=== PATIENT | female | born 1980 | race African-American/Black ===

== ENCOUNTER → 2023-04-30 12:31 | Outpatient (CLI) | payer BC, OTHER, SELFPAY ==
[2023-04-30 12:45] LABS: Basophils # 0.1 K/mm3 (0-0.2); Basophils % 0.5 % (0.1-2.0); Eosinophils # 0.3 K/mm3 (0.0-0.4); Eosinophils % 1.9 % (0.1-12.0); Hematocrit 39.7 % (37.0-47.0); Hemoglobin 13.3 g/dL (12.2-16.2); Lymphocytes # 2.8 K/mm3 (0.7-4.5); Lymphocytes % 20.3 % (10-50); Mean Corpuscular HGB Conc 33.4 g/dL (31.8-35.4); Mean Corpuscular Hemoglobin 31.9 pg (27.0-31.2); Mean Corpuscular Volume 95.5 fl (81-99); Mean Platelet Volume 7.3 fl (7.4-10.4); Monocytes # 0.8 K/mm3 (0.1-1.0); Neutrophils # 9.8 K/mm3 (1.8-7.8); Neutrophils % 71.3 % (37.0-80.0); Platelet Count 437 K/mm3 (142-424); Red Blood Count 4.16 M/mm3 (4.20-5.40); Red Cell Distribution Width 13.6 % (11.5-17.5); White Blood Count 13.8 K/mm3 (4.8-10.8)
== END ==
PROVIDERS: PCP Nurse Practitioner Family; Visit Provider Internal Medicine Medical Oncology
DX: D72.829 Elevated white blood cell count, unspecified (principal)
CPT/HCPCS: 36415; 85025

== ENCOUNTER → 2023-05-02 13:05 | Outpatient (CLI) | payer BC, OTHER, SELFPAY ==
[2023-05-13 18:56] LABS: Interpretation: Negative (.)
== END ==
PROVIDERS: PCP Nurse Practitioner Family; Visit Provider Internal Medicine Medical Oncology
DX: D72.829 Elevated white blood cell count, unspecified (principal)
CPT/HCPCS: 36415; 81206

== ENCOUNTER 2023-08-13 13:48 | Outpatient (CLI) | payer OTHER, SELFPAY ==
[2023-08-13 14:24] LABS: Basophils # 0.1 K/mm3 (0-0.2); Basophils % 0.6 % (0.1-2.0); Eosinophils # 0.4 K/mm3 (0.0-0.4); Eosinophils % 3.3 % (0.1-12.0); Hematocrit 38.6 % (37.0-47.0); Hemoglobin 14.6 g/dL (12.2-16.2); Lymphocytes # 3.6 K/mm3 (0.7-4.5); Lymphocytes % 33.2 % (10-50); Mean Corpuscular HGB Conc 37.8 g/dL (31.8-35.4); Mean Corpuscular Hemoglobin 38.1 pg (27.0-31.2); Mean Corpuscular Volume 100.8 fl (81-99); Mean Platelet Volume 7.4 fl (7.4-10.4); Monocytes # 0.8 K/mm3 (0.1-1.0); Neutrophils # 6.1 K/mm3 (1.8-7.8); Neutrophils % 55.9 % (37.0-80.0); Platelet Count 314 K/mm3 (142-424); Red Blood Count 3.83 M/mm3 (4.20-5.40); Red Cell Distribution Width 13.6 % (11.5-17.5); White Blood Count 10.9 K/mm3 (4.8-10.8)
== END 2023-08-13 23:59 ==
LOC: LAB 13:49
PROVIDERS: PCP Nurse Practitioner Family; Visit Provider Internal Medicine Medical Oncology
DX: D72.829 Elevated white blood cell count, unspecified (principal); Z79.899 Other long term (current) drug therapy
CPT/HCPCS: 36415; 85025

== ENCOUNTER 2024-02-04 09:13 | Outpatient (CLI) | payer BC, SELFPAY ==
[2024-02-04 09:31] LABS: Basophils # 0.1 K/mm3 (0-0.2); Basophils % 0.7 % (0.1-2.0); Eosinophils # 0.4 K/mm3 (0.0-0.4); Eosinophils % 3.2 % (0.1-12.0); Hematocrit 47.2 % (37.0-47.0); Hemoglobin 14.4 g/dL (12.2-16.2); Lymphocytes # 2.7 K/mm3 (0.7-4.5); Lymphocytes % 22.5 % (10-50); Mean Corpuscular HGB Conc 30.4 g/dL (31.8-35.4); Mean Corpuscular Hemoglobin 30.3 pg (27.0-31.2); Mean Corpuscular Volume 99.7 fl (81-99); Mean Platelet Volume 7.8 fl (7.4-10.4); Monocytes # 0.8 K/mm3 (0.1-1.0); Monocytes % 6.2 % (1.7-9.3); Neutrophils # 8.2 K/mm3 (1.8-7.8); Neutrophils % 67.5 % (37.0-80.0); Platelet Count 411 K/mm3 (142-424); Red Blood Count 4.74 M/mm3 (4.20-5.40); Red Cell Distribution Width 13.5 % (11.5-17.5); White Blood Count 12.1 K/mm3 (4.8-10.8)
[2024-02-04 10:00] LABS: Alanine Aminotransferase 15 U/L (12-78); Albumin Level 3.8 g/dl (3.5-5.0); Albumin/Globulin Ratio 1.3 (1.1-1.8); Alkaline Phosphatase 87 U/L (38-126); Anion Gap 8.4 mEq/L (5-15); Aspartate Amino Transferase 16 U/L (14-36); Bilirubin,Total 0.2 mg/dl (0.2-1.3); Blood Urea Nitrogen 12 mg/dl (7-17); Calcium 9.1 mg/dl (8.4-10.2); Carbon Dioxide 32 mmol/L (22.0-30.0); Chloride 105 mmol/L (98-107); Chol/HDL Ratio 3.9 (1-3.5); Cholesterol 131 mg/dl (140-200); Estimated Glomerular Filt Rate 78 ml/min (>60); GFR (African American) 95 ML/MIN (>60); Globulin 2.9 g/dL (1.3-3.2); Glucose 69 mg/dl (74-100); HDL Cholesterol 34 mg/dl (40-60); Potassium 3.4 mmoL/L (3.5-5.1); Sodium 142 mmol/L (136-145); Total Protein,Serum 6.7 g/dl (6.3-8.2); Triglycerides 121 mg/dl (30-150); VLDL Cholesterol 24 mg/dL (0-40)
[2024-02-04 10:11] LABS: Direct LDL Cholesterol 69.73 mg/dL (100-129)
[2024-02-04 10:17] LABS: 25-OH Vitamin D, Total 32.9 ng/mL (30-100)
== END 2024-02-04 23:59 | disposition home or self-care (01) ==
LOC: LAB 09:14
PROVIDERS: PCP Nurse Practitioner Family; Visit Provider Nurse Practitioner Family
DX: I10 Essential (primary) hypertension (principal); D75.839 Thrombocytosis, unspecified; E55.9 Vitamin D deficiency, unspecified
CPT/HCPCS: 36415; 80053; 80061; 82306; 85025

== ENCOUNTER 2024-03-13 20:36 | Emergency (ER) | payer BC, SELFPAY ==
[2024-03-13 20:57] VITALS: BP 136/79; PULSE 85; RESP 16; TEMP 36.7; O2SAT 99; BMI 30.7
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
[2024-03-13 21:25] LABS: Basophils # 0.1 K/mm3 (0-0.2); Basophils % 0.8 % (0.1-2.0); Eosinophils # 0.2 K/mm3 (0.0-0.4); Eosinophils % 1.8 % (0.1-12.0); Hematocrit 51.1 % (37.0-47.0); Hemoglobin 15.9 g/dL (12.2-16.2); Lymphocytes # 3.8 K/mm3 (0.7-4.5); Lymphocytes % 35.3 % (10-50); Mean Corpuscular HGB Conc 31.1 g/dL (31.8-35.4); Mean Corpuscular Hemoglobin 29.9 pg (27.0-31.2); Mean Corpuscular Volume 96.3 fl (81-99); Mean Platelet Volume 7.5 fl (7.4-10.4); Monocytes # 0.7 K/mm3 (0.1-1.0); Neutrophils # 6.1 K/mm3 (1.8-7.8); Neutrophils % 56.1 % (37.0-80.0); Platelet Count 371 K/mm3 (142-424); Red Cell Distribution Width 12.9 % (11.5-17.5); White Blood Count 10.8 K/mm3 (4.8-10.8)
[2024-03-13 21:28] LABS: Albumin Level 4.1 g/dl (3.5-5.0); Chloride 103 mmol/L (98-107)
[2024-03-13 21:29] LABS: Sodium 141 mmol/L (136-145)
[2024-03-13 21:31] LABS: Blood Urea Nitrogen 8 mg/dl (7-17); Creatinine Clearance Estimated 123 mL/min (50-200); Estimated Glomerular Filt Rate 78 ml/min (>60); GFR (African American) 95 ML/MIN (>60)
[2024-03-13 21:32] LABS: Alanine Aminotransferase 26 U/L (12-78); Albumin/Globulin Ratio 1.3 (1.1-1.8); Alkaline Phosphatase 74 U/L (38-126); Anion Gap 4.7 mEq/L (5-15); Aspartate Amino Transferase 24 U/L (14-36); Bilirubin,Total 0.4 mg/dl (0.2-1.3); Calcium 9.8 mg/dl (8.4-10.2); Carbon Dioxide 36 mmol/L (22.0-30.0); Globulin 3.2 g/dL (1.3-3.2); Glucose 92 mg/dl (74-100); Total Protein,Serum 7.3 g/dl (6.3-8.2)
[2024-03-13 21:35] LABS: Activated Partial Thrombo Time 30.8 seconds (22.8-30.6); INR 0.94 (0.9-1.1); Prothrombin Time 10.6 seconds (10.1-12.5)
[2024-03-13 21:41] LABS: Potassium 2.7 mmoL/L (3.5-5.1)
--- NOTE | 2024-03-13 21:53 | ECG_ITS ---
APPROVED REPORT Exam: Resting ECG HR:59 bpm ECG Measurements Heart Rate 59 AXES UT 193 P 158 QRSd 90 QRS 77 QT 426 T 57 QTc 424 Conclusion SINUS BRADYCARDIA BORDERLINE ECG Electronically signed by : PURNIMA SHANKAR, 03/13/2024 23:56:41
[2024-03-13] MEDS: SODIUM CHLORIDE 0.9% 10ML SYR (RAD ONLY) 10 ML IV (22:27)
[2024-03-13] MEDS: 0.9 % SODIUM CHLORIDE 50 ML VIAL 100 ML IV (22:27)
[2024-03-13] MEDS: IOPAMIDOL-370 (76%);100ML BOTTLE 150 ML IV (22:27)
[2024-03-13] MEDS: LIDOCAINE 5% TRANSDERMAL PATCH 1 EACH TP (22:29)
[2024-03-13] MEDS: ACETAMINOPHEN 500MG TAB 1000 MG PO (22:29)
[2024-03-13] MEDS: KCl 10mEq/100ml 100 ML 100 MEQ IV (22:29)
[2024-03-13] MEDS: METHOCARBAMOL 500MG TABLET 500 MG PO (22:29)
[2024-03-13] MEDS: POTASSIUM CHLORIDE 20MEQ TAB 40 MEQ PO (22:29)
[2024-03-13] MEDS: LACTATED RINGERS 1000ML 1,000 ML 999 ML IV (22:30)
--- NOTE | 2024-03-13 23:00 | PC.NURSE ---
called radiology in request to [facility] to [facility]
--- NOTE | 2024-03-13 23:07 | PC.NURSE ---
Contacted in regards to transfer for this patient, all images power-shared and provider on the phone at this time.
--- NOTE | 2024-03-13 23:24 | PC.NURSE ---
called report to LYSSA garcia
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
[2024-03-13 23:37] VITALS: BP 142/75; PULSE 78; RESP 19; TEMP 36.7; O2SAT 98
== END 2024-03-13 23:44 | disposition left against medical advice (07) ==
PROVIDERS: Emergency Provider Emergency Medicine; PCP Nurse Practitioner Family
DX: S06.9X0A Unspecified intracranial injury without loss of consciousness, initial encounter (principal); S02.832A Fracture of medial orbital wall, left side, initial encounter for closed fracture; S02.40DA Maxillary fracture, left side, initial encounter for closed fracture; S02.40CA Maxillary fracture, right side, initial encounter for closed fracture; R51.9 Headache, unspecified; R11.0 Nausea; M25.512 Pain in left shoulder; R07.81 Pleurodynia; H53.2 Diplopia; Z79.82 Long term (current) use of aspirin; Y04.8XXA Assault by other bodily force, initial encounter; Y07.010 Husband, current, perpetrator of maltreatment and neglect; F17.200 Nicotine dependence, unspecified, uncomplicated; R00.1 Bradycardia, unspecified; E87.6 Hypokalemia
CPT/HCPCS: 70450; 70486; 70496; 70498; 71275; 72125; 72128; 73030; 73060; 73080; 74174; 80053; 85025; 85610; 85730; 93005; 96360; 96361; 99291; J3480; J7120; Q9967

== ENCOUNTER 2024-05-16 20:09 | Emergency (ER) | payer BC, SELFPAY ==
[2024-05-16 20:10] VITALS: BP 167/91; PULSE 76; RESP 18; TEMP 36.4; O2SAT 100; BMI 30.4
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
[2024-05-16 21:10] VITALS: BP 132/97; PULSE 79; RESP 16; TEMP 36.9; O2SAT 100
[2024-05-16 21:20] VITALS: BP 132/97; PULSE 79; RESP 16; TEMP 36.9; O2SAT 100
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
== END 2024-05-16 21:26 ==
PROVIDERS: Emergency Provider Emergency Medicine; PCP Nurse Practitioner Family
DX: Z00.8 Encounter for other general examination (principal); R07.89 Other chest pain; R03.0 Elevated blood-pressure reading, without diagnosis of hypertension; R10.2 Pelvic and perineal pain
CPT/HCPCS: 71046; 72170; 99283

== ENCOUNTER 2025-01-13 10:33 | Outpatient (CLI) | payer OTHER, SELFPAY ==
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
--- OUTSIDE RECORDS SUMMARY | 2025-01-13 10:41 | XMS_ITS | Clinical Summary ---
Author Organization [facility] Address [address] [place] [address] Care Team Providers Care Clinic Supervisor Name Role Phone Unavailable Primary Care Provider Unavailabl e Social History Tobacco Use Types Packs/Day Years Used Date Smoking Tobacco: Never Assessed Comments Unknown Sex and Gender Information Value Date Recorded Sex Assigned at Not on file Legal Sex Female 8:39 PM EDT Gender Identity Not on file Sexual Orientation Not on file Plan of Treatment Not on file
--- OUTSIDE RECORDS SUMMARY | 2025-01-13 10:42 | XMS_ITS | Encounter Summary ---
Author Organization [facility] Address [address] 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 Name Role Phone Unavailable Primary Care Provider Unavailabl e Encounter Details Date Type Department Care Team (Late st Contact Info) Description 07/19/2024 Lab Requisition [facility] [address] [place] [address] Maximiliano Sullivan MD [address] [place] [address] Routine general medical examination at a health care facility Social History Tobacco Use Types Packs/Day Years Used Date Smoking Tobacco: Never Assessed Comments Unknown Sex and Gender Information Value Date Recorded Sex Assigned at Not on file Legal Sex Female 8:39 PM EDT Gender Identity Not on file Sexual Orientation Not on file documented as of this encounter Plan of Treatment Not on file documented as of this encounter Procedures Procedure Name Priority Date/Time Associated Diagnosis Comments SERUM DRUG SCREEN Routine 07/19/2024 7:2 9 AM EST Routine general medical examination at a health care facility CBC WITH AUTO DIFFERENTIAL Routine 07/19/2024 7:29 AM EST Routine general medical examination at a health care facility TSH Routine 07/19/2024 7:29 AM EST Routine general medical examination at a health care facility FREE T4, PLASMA Routine 07/19/2024 7:29 AM EST Routine general medical examination at a health care facility HEMOGLOBIN A1C Routine 07/19/2024 7:29 AM EST Routine general medical examination at a health care facility LIPID PROFILE, PLASMA Routine 07/19/2024 7:29 AM EST Routine general medical examination at a health care facility COMPREHENSIVE METABOLIC PANEL, PLASMA Routine 07/19/2024 7:29 AM EST Routine general medical examination at a health care facility documented in this encounter Results * (ABNORMAL) Serum Drug Screen (07/19/2024 7:29 AM EST) 9 Carboxy THC <5 <5 ng/mL 07/23/2024 3:42 PM EST [facility] Alprazolam <5 <5 ng/mL 07/23/2024 3:42 PM EST [facility] Amphetamine <10 <10 ng/mL 07/23/2024 3:42 PM EST [facility] Benzolyecgonine <20 <20 ng/mL 3:42 PM EST [facility] Buprenorphine <1 <1 ng/mL 07/23/2024 3:42 PM EST [facility] Butalbital <50 <50 ng/mL 07/23/2024 3:42 PM EST [facility] Clonazepam 5(H) <5 ng/mL 07/23/2024 3:42 PM EST [facility] Codeine <5 <5 ng/mL 07/23/2024 3:42 PM EST [facility] Diazepam 309(H) <5 ng/mL 07/23/2024 3:42 PM EST [facility] Fentanyl <1 <1 ng/mL 07/23/2024 3:42 PM EST [facility] Hydrocodone <2 <2 ng/mL 07/23/2024 3:42 PM EST [facility] Hydromorphone <5 <5 ng/mL 07/23/2024 3:42 PM EST [facility] Lorazepam <5 <5 ng/mL 07/23/2024 3:42 PM EST [facility] MDA <10 <10 ng/mL 07/23/2024 3:42 PM EST [facility] MDMA <10 <10 ng/mL 07/23/2024 3:42 PM EST [facility] Meperidine <5 <5 ng/mL 07/23/2024 3:42 PM EST [facility] Methadone <10 <10 ng/mL 07/23/2024 3:42 PM EST [facility] Methadone Metabolite <10 <10 ng/mL 06/25 3:42 PM EST [facility] Methamphetamine <10 <10 ng/mL 3:42 PM EST [facility] Midazolam <5 <5 ng/mL 07/23/2024 3:42 PM EST [facility] Morphine <2 <2 ng/mL 07/23/2024 3:42 PM EST [facility] Norbuprenorphine <5 <5 ng/mL 07/23/19 3:42 PM EST [facility] Nordiazepam 665(H) <10 ng/mL 07/23/2024 3:42 PM EST [facility] Oxazepam 21(H) <5 ng/mL 07/23/2024 3:42 PM EST [facility] Oxycodone <2 <2 ng/mL 07/23/2024 3:42 PM EST [facility] Oxymorphone <2 <2 ng/mL 07/23/2024 3:42 PM EST [facility] Phenobarbital <50 <50 ng/mL 07/23/2024 3:42 PM EST [facility] Temazepam 16(H) <5 ng/mL 07/23/2024 3:42 PM EST [facility] Tramadol <20 <20 ng/mL 07/23/2024 3:42 PM EST [facility] Blood Venous blood specimen / Unknown Venipuncture / Unknown 07/19/2024 7:29 AM EST 07/19/2024 8:30 AM EST [facility] - 07/23/2024 3:42 PM EST Test performed by LC-MS/MS at the [facility]. This test was developed and its performance characteristics determined by [facility]. It has not been cleared or approved by the FDA. The laboratory is regulated under CLIA as qualified to perform high-complexity testing. This test is used for clinical purposes. us Maximiliano Sullivan MD LAB BLOOD ORDERABLES Final Res ult [facility] [address] [place] [address] * (ABNORMAL) CBC and Differential (07/19/2024 7:29 AM EST) WBC Count 8.75 3.70 - 10.30 10*3/uL LAB HEMATOLOGY METHOD 07/19/2024 9:45 AM EST [facility] RBC Count 5.00 3.90 - 5.20 10*6/uL LAB HEMATOLOGY METHOD 07/19/2024 9:45 AM EST [facility] HGB 14.5 11.2 - 15.7 g/dL LAB HEMATOLOGY METHOD 07/19/2024 9:45 AM EST [facility] HCT 45.4(H) 34.0 - 45.0 % LAB HEMATOLOGY METHOD 07/19/2024 9:45 AM EST [facility] Platelet Count 351 155 - 369 10*3/uL LAB HEMATOLOGY METHOD 07/19/2024 9:45 AM EST [facility] MCV 91 79 - 98 fL LAB HEMATOLOGY METHOD 07/19/2024 9:45 AM EST [facility] MCH 29.0 26.0 - 32.0 pg LAB HEMATOLOGY METHOD 07/19/2024 9:45 AM EST [facility] MCHC 31.9 30.7 - 35.5 g/dL LAB HEMATOLOGY METHOD 07/19/2024 9:45 AM EST [facility] RDW 14.6(H) 11.5 - 14.5 % LAB HEMATOLOGY METHOD 07/19/2024 9:45 AM EST [facility] MPV 10.3 8.8 - 12.5 fL LAB HEMATOLOGY METHOD 07/19/2024 9:45 AM EST [facility] nRBC 0.0 <=0.0 per 100 WBCs LAB HEMATOLOGY METHOD 07/19/2024 9:45 AM EST [facility] Differential Type Automated LAB HEMATOLOGY METHOD 07/19/2024 9:45 AM EST [facility] Neutrophils % 49 % LAB HEMATOLOGY METHOD 07/19/2024 9:45 AM EST [facility] Lymphocytes % 37 % LAB HEMATOLOGY METHOD 07/19/2024 9:45 AM EST [facility] Monocytes % 10 % LAB HEMATOLOGY METHOD 07/19/2024 9:45 AM EST [facility] Eosinophils % 3 % LAB HEMATOLOGY METHOD 07/19/2024 9:45 AM EST [facility] Basophils % 1 % LAB HEMATOLOGY METHOD 07/19/2024 9:45 AM EST [facility] Immature Granulocytes % 0 % LAB HEMATOLOGY METHOD 07/19/2024 9:45 AM EST [facility] Neutrophils Absolute 4.27 1.60 - 6.10 10*3/uL LAB HEMATOLOGY METHOD 07/19/2024 9:45 AM EST [facility] Lymphocytes Absolute 3.27 1.20 - 3.90 10*3/uL LAB HEMATOLOGY METHOD 07/19/2024 9:45 AM EST [facility] Monocytes Absolute 0.86 0.30 - 0.90 10*3/uL LAB HEMATOLOGY METHOD 07/19/2024 9:45 AM EST [facility] Eosinophils Absolute 0.26 0.00 - 0.50 10*3/uL LAB HEMATOLOGY METHOD 07/19/2024 9:45 AM EST [facility] Basophils Absolute 0.06 0.00 - 0.10 10*3/uL LAB HEMATOLOGY METHOD 07/19/2024 9:45 AM EST [facility] Immature Granulocytes Absolute 0.03 0.00 - 0.06 10*3/uL LAB HEMATOLOGY METHOD 07/19/2024 9:45 AM EST [facility] Blood Venous blood specimen / Unknown Venipuncture / Unknown 07/19/2024 7:29 AM EST 07/19/2024 8:15 AM EST [facility] - 07/19/2024 9:45 AM EST Therapeutic decision making should be based on absolute values, rather than percentages. us Maximiliano Sullivan MD LAB BLOOD ORDERABLES Final Res ult [facility] [address] [place] [id number] * TSH (07/19/2024 7:29 AM EST) Thyroid Stimulating Hormone, Plasma 0.53 0.40 - 4.20 uIU/mL 07/19/2024 10:13 AM EST [facility] Blood Venous blood specimen / Unknown Venipuncture / Unknown 07/19/2024 7:29 AM EST 07/19/2024 8:32 AM EST [facility] - 07/19/2024 10:13 AM EST Trimester Specific Ranges TSH ( IU/mL) 1st Trimester 0.1 - 3.0 2nd Trimester 0.19 - 4.06 3rd Trimester 0.3 - 3.7 us Maximiliano Sullivan MD LAB BLOOD ORDERABLES Final Res ult Performing Organization Address City/[facility] Co de Phone Number [facility] [address] [place] [address] * T4, free (07/19/2024 7:29 AM EST) Free T4, Plasma 1.2 0.8 - 1.7 ng/dL 07/19/2024 10:13 AM EST [facility] Blood Venous blood specimen / Unknown Venipuncture / Unknown 07/19/2024 7:29 AM EST 07/19/2024 8:32 AM EST Narrative [facility] - 07/19/2024 10:13 AM EST Free T4 Trimester Specific Ranges 1st Trimester 0.9 - 1.50 ng/dL 2nd Trimester 0.7 - 1.40 ng/dL 3rd Trimester 0.7 - 1.24 ng/dL us Maximiliano Sullivan MD LAB BLOOD ORDERABLES Final Res ult Performing Organization Address City/[facility] Co de Phone Number [facility] [address] [place] [address] * Hemoglobin A1c (07/19/2024 7:29 AM EST) Hemoglobin A1c 5.1 <5.7 % 07/19/2024 10:21 AM EST [facility] Blood Venous blood specimen / Unknown Venipuncture / Unknown 07/19/2024 7:29 AM EST 07/19/2024 8:25 AM EST Narrative [facility] - 07/19/2024 10:21 AM EST HA1C Interpretive Data: Diagnosis of Diabetes: Diabetic > or = 6.5% Pre-diabetic 5.7 to 6.4% Non-diabetic < or = 5.6% Glycemic Targets for Type I and Type II Diabetics: Non- Adults <7.0% Adults <6.0% Children and Adolescents <7.5% Source: [place] [employer]. Standards of medical care in diabetes,2017. Diabetes Care.2017:40 (suppl 1):S1-S135. HbA1c assay performed by an ion-exchange chromatography method that is certified traceable to the DCCT. us Maximiliano Sullivan MD LAB BLOOD ORDERABLES Final Res ult [facility] [address] [place] [address] * (ABNORMAL) Lipid panel (07/19/2024 7:29 AM EST) Cholesterol, Plasma 108 <200 mg/dL 07/19/2024 10:13 AM EST [facility] Comment: Cholesterol Reference Range (age >17 years): Desirable <200 mg/dL Borderline 200 to 239 mg/dL Undesirable >239 mg/dL HDL 36(L) >=50 mg/dL 07/19/2024 10:13 AM EST [facility] Comment: HDL Cholesterol Reference Ranges (age >17 years): Female, acceptable > or = 50 mg/dL Male, acceptable > or = 40 mg/dL Triglycerides, Plasma 69 <150 mg/dL 07/19/2024 10:13 AM EST [facility] Comment: Triglyceride Reference Range (age >17 years): Desirable: <150 mg/dL Borderline high: 150 to 199 mg/dL High: 200 to 499 mg/dL Very high: >499 mg/dL Increased risk of pancreatitis: >1000 mg/dL Cholesterol/HDL Ratio 3 07/19/2024 10:13 AM EST [facility] LDL, Calculated 57 <100 mg/dL 10:13 AM EST [facility] Comment: LDL Cholesterol Reference Range (age >17 years): Optimal: <100 mg/dL Near or above optimal: 100 - 129 mg/dL Borderline high: 130 - 159 mg/dL High: 160 - 189 mg/dL Very high: >189 mg/dL LDL Cholesterol Reference Range (age <18 years): Desirable: <110 mg/dL Borderline: 110 - 129 mg/dL Undesirable: >130 mg/dL LDL Cholesterol is calculated using the Vogel/NIH equation. Fasting greater than or equal to 12 hours? Unknown 07/19/2024 10:13 AM EST [facility] Blood Venous blood specimen / Unknown Venipuncture / Unknown 07/19/2024 7:29 AM EST 07/19/2024 8:32 AM EST us Maximiliano Sullivan MD LAB BLOOD ORDERABLES Final Res ult [facility] [address] [place] [address] * (ABNORMAL) Comprehensive metabolic panel (07/19/2024 7:29 AM EST) Glucose, Plasma 92 74 - 99 mg/dL 07/19/2024 10:13 AM [facility] BUN, Plasma 11 7 - 21 mg/dL 07/19/2024 10:13 AM [facility] Creatinine, Plasma 0.87 0.60 - 1.10 mg/dL 07/19/2024 10:13 AM [facility] BUN/Creatinine Ratio 13 07/19/2024 10:13 AM [facility] Sodium, Plasma 141 136 - 145 mmol/L 07/19/2024 10:13 AM [facility] Potassium, Plasma 3.6 3.6 - 4.9 mmol/L 07/19/2024 10:13 AM [facility] Chloride, Plasma 103 97 - 107 mmol/L 07/19/2024 10:13 AM [facility] CO2, Plasma 31(H) 22 - 29 mmol/L 07/19/2024 10:13 AM [facility] Anion Gap 7 6 - 16 mmol/L 07/19/2024 10:13 AM [facility] Total Calcium, Plasma 9.5 8.9 - 10.2 mg/dL 07/19/2024 10:13 AM [facility] Total Protein 6.5 6.3 - 7.9 g/dL 07/19/2024 10:13 AM [facility] Albumin, Plasma 3.8 3.5 - 5.2 g/dL 07/19/2024 10:13 AM [facility] AST, Plasma 26 10 - 35 U/L 07/19/2024 10:13 AM [facility] ALT, Plasma 23 10 - 35 U/L 07/19/2024 10:13 AM [facility] Alkaline Phosphatase, Plasma 88 35 - 104 U/L 07/19/2024 10:13 AM [facility] Total Bilirubin, Plasma 0.3 0.2 - 1.1 mg/dL 07/19/2024 10:13 AM EST [facility] eGFRcr 84.4 mL/min/1.7 3m*2 07/19/2024 10:13 AM EST [facility] Comment:Reported eGFRcr in m L/min/1.73m2 is based the CKD-EPI 2020 equation that does not use a race coefficient. Blood Venous blood specimen / Unknown Venipuncture / Unknown 07/19/2024 7:29 AM EST 07/19/2024 8:32 AM EST us Maximiliano Sullivan MD LAB BLOOD ORDERABLES Final Res ult [facility] [address] [place] [address] documented in this encounter Visit Diagnoses Diagnosis Routine general medical examination at a health care facility documented in this encounter
--- NOTE | 2025-01-13 10:52 | XR_ITS ---
FINAL REPORT CLINICAL HISTORY: proximal PAIN LT LOWER LEG, swelling, shooting pain to groin, limited range of motion FINDINGS: LEFT FEMUR Two views were obtained. There is no fracture or dislocation. There are moderate degenerative changes of the left hip. No soft tissue abnormality is identified. IMPRESSION: No acute process. Reviewed, Interpreted and Dictated by Amy Almaraz MD Transcribed by Pippa Vasquez Authenticated and [facility]
== END 2025-01-13 23:59 | disposition home or self-care (01) ==
LOC: RT 10:34
PROVIDERS: PCP Nurse Practitioner Family; Visit Provider Nurse Practitioner Family
DX: M79.662 Pain in left lower leg (principal); R22.42 Localized swelling, mass and lump, left lower limb; I83.90 Asymptomatic varicose veins of unspecified lower extremity
CPT/HCPCS: 73552; 93971

== ENCOUNTER 2025-02-02 10:13 | Outpatient (CLI) | payer OTHER, SELFPAY ==
--- NOTE | 2025-02-02 10:14 | XR_ITS ---
FINAL REPORT CLINICAL HISTORY: left hip pain COMPARISON: None FINDINGS: LEFT HIP: Two views of the left hip demonstrate no acute fracture or dislocation. There are moderate degenerative changes. IMPRESSION: Degenerative changes without acute bony abnormality. Reviewed, Interpreted and Dictated by Amy Almaraz MD Transcribed by Aubrie Andres Authenticated and [facility]
--- OUTSIDE RECORDS SUMMARY | 2025-02-02 10:18 | XMS_ITS | Clinical Summary ---
Author Organization [facility] Address [address] [place] [address] Care Team Providers Care Switch Adjuster Name Role Phone Unavailable Primary Care Provider [...]
--- OUTSIDE RECORDS SUMMARY | 2025-02-02 10:18 | XMS_ITS | Encounter Summary ---
Author Organization [facility] Address [address] [place] [address] Care Team Providers Care Museum Service Scheduler Name Role Phone Unavailable Primary Care Provider Unavailabl e Encounter Details Date Type Department Care Team (Late st Contact Info) Description 07/19/2024 Lab Requisition [facility] [address] [place] [address] Maximiliano Sullivan MD [address] [place] [address] Routine general medical examination at a health [...] <5 <5 ng/mL 07/23/2024 3:42 PM EST [facility] Alprazolam <5 <5 ng/mL 07/23/2024 3:42 PM EST [facility] Amphetamine <10 <10 ng/mL 07/23/2024 3:42 PM EST [facility] Benzolyecgonine <20 <20 ng/mL 3:42 PM EST [facility] Buprenorphine <1 <1 ng/mL 07/23/2024 3:42 PM EST [facility] Butalbital <50 <50 ng/mL 07/23/2024 3:42 PM EST [facility] Clonazepam 5(H) <5 ng/mL 07/23/2024 3:42 PM EST [facility] Codeine <5 <5 ng/mL 07/23/2024 3:42 PM EST [facility] Diazepam 309(H) <5 ng/mL 07/23/2024 3:42 PM EST [facility] Fentanyl <1 <1 ng/mL 07/23/2024 3:42 PM EST [facility] Hydrocodone <2 <2 ng/mL 07/23/2024 3:42 PM EST [facility] Hydromorphone <5 <5 ng/mL 07/23/2024 3:42 PM EST [facility] Lorazepam <5 <5 ng/mL 07/23/2024 3:42 PM EST [facility] MDA <10 <10 ng/mL 07/23/2024 3:42 PM EST [facility] MDMA <10 <10 ng/mL 07/23/2024 3:42 PM EST [facility] Meperidine <5 <5 ng/mL 07/23/2024 3:42 PM EST [facility] Methadone <10 <10 ng/mL 07/23/2024 3:42 PM EST [facility] Methadone Metabolite <10 <10 ng/mL 06/25 3:42 PM EST [facility] Methamphetamine <10 <10 ng/mL 3:42 PM EST [facility] Midazolam <5 <5 ng/mL 07/23/2024 3:42 PM EST [facility] Morphine <2 <2 ng/mL 07/23/2024 3:42 PM EST [facility] Norbuprenorphine <5 <5 ng/mL 07/23/19 3:42 PM EST [facility] Nordiazepam 665(H) <10 ng/mL 07/23/2024 3:42 PM EST [facility] Oxazepam 21(H) <5 ng/mL 07/23/2024 3:42 PM EST [facility] Oxycodone <2 <2 ng/mL 07/23/2024 3:42 PM EST [facility] Oxymorphone <2 <2 ng/mL 07/23/2024 3:42 PM EST [facility] Phenobarbital <50 <50 ng/mL 07/23/2024 3:42 PM EST [facility] Temazepam 16(H) <5 ng/mL 07/23/2024 3:42 PM EST [facility] Tramadol <20 <20 ng/mL 07/23/2024 3:42 PM EST [facility] Blood Venous blood specimen / Unknown Venipuncture / Unknown 07/19/2024 7:29 AM EST 07/19/2024 8:30 AM EST [facility] - 07/23/2024 3:42 PM EST Test performed by LC-MS/MS at the [facility]. This test was developed and its performance characteristics determined by [facility]. It has not been cleared or approved by the FDA. The laboratory is regulated under CLIA as qualified to perform high-complexity testing. This test is used for clinical purposes. us Maximiliano Sullivan MD LAB BLOOD ORDERABLES Final Res ult [facility] [address] [place] [address] * (ABNORMAL) CBC and Differential (07/19/2024 7:29 AM EST) WBC Count 8.75 3.70 - 10.30 10*3/uL LAB HEMATOLOGY METHOD 07/19/2024 9:[address] [facility] RBC Count 5.00 3.90 - 5.20 10*6/uL LAB HEMATOLOGY METHOD 07/19/2024 9:[address] [facility] HGB 14.5 11.2 - 15.7 g/dL LAB HEMATOLOGY METHOD 07/19/2024 9:[address] [facility] HCT 45.4(H) 34.0 - 45.0 % LAB HEMATOLOGY METHOD 07/19/2024 9:[address] [facility] Platelet Count 351 155 - 369 10*3/uL LAB HEMATOLOGY METHOD 07/19/2024 9:[address] [facility] MCV 91 79 - 98 fL LAB HEMATOLOGY METHOD 07/19/2024 9:[address] [facility] MCH 29.0 26.0 - 32.0 pg LAB HEMATOLOGY METHOD 07/19/2024 9:[address] [facility] MCHC 31.9 30.7 - 35.5 g/dL LAB HEMATOLOGY METHOD 07/19/2024 9:[address] [facility] RDW 14.6(H) 11.5 - 14.5 % LAB HEMATOLOGY METHOD 07/19/2024 9:[address] [facility] MPV 10.3 8.8 - 12.5 fL LAB HEMATOLOGY METHOD 07/19/2024 9:[address] [facility] nRBC 0.0 <=0.0 per 100 WBCs LAB HEMATOLOGY METHOD 07/19/2024 9:[address] [facility] Differential Type Automated LAB HEMATOLOGY METHOD 07/19/2024 9:[address] [facility] Neutrophils % 49 % LAB HEMATOLOGY METHOD 07/19/2024 9:45 AM EST [facility] Lymphocytes % 37 % LAB HEMATOLOGY METHOD 07/19/2024 9:45 AM EST [facility] Monocytes % 10 % LAB HEMATOLOGY METHOD 07/19/2024 9:45 AM EST [facility] Eosinophils % 3 % LAB HEMATOLOGY METHOD 07/19/2024 9:[address] [facility] Basophils % 1 % LAB HEMATOLOGY METHOD 07/19/2024 9:[address] [facility] Immature Granulocytes % 0 % LAB HEMATOLOGY METHOD 07/19/2024 9:[address] [facility] Neutrophils Absolute 4.27 1.60 - 6.10 10*3/uL LAB HEMATOLOGY METHOD 07/19/2024 9:[address] [facility] Lymphocytes Absolute 3.27 1.20 - 3.90 10*3/uL LAB HEMATOLOGY METHOD 07/19/2024 9:[address] [facility] Monocytes Absolute 0.86 0.30 - 0.90 10*3/uL LAB HEMATOLOGY METHOD 07/19/2024 9:[address] [facility] Eosinophils Absolute 0.26 0.00 - 0.50 10*3/uL LAB HEMATOLOGY METHOD 07/19/2024 9:[address] [facility] Basophils Absolute 0.06 0.00 - 0.10 10*3/uL LAB HEMATOLOGY METHOD 07/19/2024 9:[address] [facility] Immature Granulocytes Absolute 0.03 0.00 - 0.06 10*3/uL LAB HEMATOLOGY METHOD 07/19/2024 9:[address] [facility] Blood Venous blood specimen / Unknown Venipuncture / Unknown 07/19/2024 7:29 AM EST 07/19/2024 8:15 AM EST [facility] - 07/19/2024 9:45 AM EST Therapeutic decision making should be based on absolute values, rather than percentages. us Maximiliano Sullivan MD LAB BLOOD ORDERABLES Final Res ult [facility] [address] [place] [id number] * TSH (07/19/2024 7:29 AM EST) Thyroid Stimulating Hormone, Plasma 0.53 0.40 - 4.20 uIU/mL 07/19/2024 10:[address] [facility] Blood Venous blood specimen / Unknown Venipuncture / Unknown 07/19/2024 7:29 AM EST 07/19/2024 8:32 AM EST [facility] - 07/19/2024 10:13 AM EST Trimester Specific Ranges TSH ( IU/mL) 1st Trimester 0.1 - 3.0 2nd Trimester 0.19 - 4.06 3rd Trimester 0.3 - 3.7 us Maximiliano Sullivan MD LAB BLOOD ORDERABLES Final Res ult Performing Organization Address City/[facility] Co de Phone Number [facility] [address] [place] [address] * T4, free (07/19/2024 7:29 AM EST) Free T4, Plasma 1.2 0.8 - 1.7 ng/dL 07/19/2024 10:[address] [facility] Blood Venous blood specimen / Unknown Venipuncture / Unknown 07/19/2024 7:29 AM EST 07/19/2024 8:[address] [facility] - 07/19/2024 10:13 AM EST Free T4 Trimester Specific Ranges 1st Trimester 0.9 - 1.50 ng/dL 2nd Trimester 0.7 - 1.40 ng/dL 3rd Trimester 0.7 - 1.24 ng/dL us Maximiliano Sullivan MD LAB BLOOD ORDERABLES Final Res ult Performing Organization Address [facility] Co de Phone Number [facility] [address] [place] [address] * Hemoglobin A1c (07/19/2024 7:29 AM EST) Hemoglobin A1c 5.1 <5.7 % 07/19/2024 10:21 AM EST [facility] Blood Venous blood specimen / Unknown Venipuncture / Unknown 07/19/2024 7:29 AM EST 07/19/2024 8:25 AM EST Narrative [facility] - 07/19/2024 10:21 AM EST HA1C Interpretive Data: Diagnosis of Diabetes: Diabetic > or = 6.5% Pre-diabetic 5.7 to 6.4% Non-diabetic < or = 5.6% Glycemic Targets for Type I and Type II Diabetics: Non- Adults <7.0% Adults <6.0% Children and Adolescents <7.5% Source: [place] [employer]. Standards of medical care in diabetes,2017. Diabetes Care.2017:40 (suppl 1):S1-S135. HbA1c assay performed by an ion-exchange chromatography method that is certified traceable to the DCCT. us Maximiliano Sullivan MD LAB BLOOD ORDERABLES Final Res ult [facility] [address] [place] [address] * (ABNORMAL) Lipid panel (07/19/2024 7:29 AM EST) Cholesterol, Plasma 108 <200 mg/dL 07/19/2024 10:13 AM EST [facility] Comment: Cholesterol Reference Range (age >17 years): Desirable <200 mg/dL Borderline 200 to 239 mg/dL Undesirable >239 mg/dL HDL 36(L) >=50 mg/dL 07/19/2024 10:13 AM EST [facility] Comment: HDL Cholesterol Reference Ranges (age >17 years): Female, acceptable > or = 50 mg/dL Male, acceptable > or = 40 mg/dL Triglycerides, Plasma 69 <150 mg/dL 07/19/2024 10:13 AM EST [facility] Comment: Triglyceride Reference Range (age >17 years): Desirable: <150 mg/dL Borderline high: 150 to 199 mg/dL High: 200 to 499 mg/dL Very high: >499 mg/dL Increased risk of pancreatitis: >1000 mg/dL Cholesterol/HDL Ratio 3 07/19/2024 10:13 AM EST [facility] LDL, Calculated 57 <100 mg/dL 10:13 AM EST [facility] Comment: LDL Cholesterol Reference Range (age [...] 12 hours? Unknown 07/19/2024 10:13 AM EST [facility] Blood Venous blood specimen / Unknown Venipuncture / Unknown 07/19/2024 7:29 AM EST 07/19/2024 8:32 AM EST us Maximiliano Sullivan MD LAB BLOOD ORDERABLES Final Res ult [facility] [address] [place] [address] * (ABNORMAL) Comprehensive metabolic panel (07/19/2024 7:29 AM EST) Glucose, Plasma 92 74 - 99 mg/dL 07/19/2024 10:13 AM [facility] BUN, Plasma 11 7 - 21 mg/dL 07/19/2024 10:13 AM [facility] Creatinine, Plasma 0.87 0.60 - 1.10 mg/dL 07/19/2024 10:13 AM [facility] BUN/Creatinine Ratio 13 07/19/2024 10:13 AM [facility] Sodium, Plasma 141 136 - 145 mmol/L 07/19/2024 10:13 AM [facility] Potassium, Plasma 3.6 3.6 - 4.9 mmol/L 07/19/2024 10:13 AM [facility] Chloride, Plasma 103 97 - 107 mmol/L 07/19/2024 10:13 AM [facility] CO2, Plasma 31(H) 22 - 29 mmol/L 07/19/2024 10:13 AM [facility] Anion Gap 7 6 - 16 mmol/L 07/19/2024 10:13 AM [facility] Total Calcium, Plasma 9.5 8.9 - 10.2 mg/dL 07/19/2024 10:13 AM [facility] Total Protein 6.5 6.3 - 7.9 g/dL 07/19/2024 10:13 AM [facility] Albumin, Plasma 3.8 3.5 - 5.2 g/dL 07/19/2024 10:13 AM [facility] AST, Plasma 26 10 - 35 U/L 07/19/2024 10:13 AM [facility] ALT, Plasma 23 10 - 35 U/L 07/19/2024 10:13 AM [facility] Alkaline Phosphatase, Plasma 88 35 - 104 U/L 07/19/2024 10:13 AM [facility] Total Bilirubin, Plasma 0.3 0.2 - [...] ORDERABLES Final Res ult [facility] [address] [place] [address] documented in this encounter Visit Diagnoses Diagnosis Routine general medical examination at a health care facility documented in this encounter
== END 2025-02-02 23:59 | disposition home or self-care (01) ==
LOC: RAD 10:14
PROVIDERS: Visit Provider Physician Assistant
DX: M16.12 Unilateral primary osteoarthritis, left hip (principal)
CPT/HCPCS: 73502